=== PATIENT | female | born 1980 | race African-American/Black ===

== ENCOUNTER 2018-11-20 12:12 | Emergency (ER) | payer SELFPAY | END 2018-11-20 13:38 | disposition home or self-care (01) | LOC: ERS 12:12 | DX: L03.211 Cellulitis of face (principal); K08.89 Other specified disorders of teeth and supporting structures; F17.210 Nicotine dependence, cigarettes, uncomplicated | CPT/HCPCS: 99282 ==

== ENCOUNTER 2021-05-16 16:57 | Emergency (ER) | payer SELFPAY ==
[2021-05-17 14:57] LABS: SARS-CoV-2 PCR by NAA DETECTED (NotDetected)
== END 2021-05-16 19:49 | disposition home or self-care (01) ==
LOC: ERS 16:57
DX: U07.1 COVID-19 (principal); F17.210 Nicotine dependence, cigarettes, uncomplicated
CPT/HCPCS: 99283; U0003; U0005